=== PATIENT | male | born 1990 | race African-American/Black ===

== ENCOUNTER 2017-01-20 02:39 | Emergency (ER) | payer SELFPAY ==
[~2017-01-20] VITALS: Ht 193 cm; Wt 116.3 kg
[~2017-01-20 02:39] MED LIST: GLUCOMETER XX; GLUCOMTESTSTRIPS XX; LEVEMIR SQ; LISI2.5T3 PO; Z.0.INSULINSYR XX; Z.0.LANCETS XX
[2017-01-20 02:40] VITALS: BP 170/106; PULSE 83; RESP 18; TEMP 97.9; O2SAT 99
[2017-01-20] MEDS ORDERED: LEVEMIR SQ (02:52)
[2017-01-20] MEDS ORDERED: IBUP800T23 PO (02:58)
[2017-01-20] MEDS ORDERED: PERI0.126 SWISH-SPIT (02:58)
[2017-01-20] MEDS ORDERED: ULTR50TA5 PO (02:58)
--- NOTE | 2017-01-20 02:59 | PD ---
HPI Chief Complaint: Oral / Dental Pain or Problem Time Seen by Provider: 02:55 Travel History International Travel<30 days: No Contact w/Intl Traveler<30days: No Traveled to known affect area: No History of Present Illness HPI 26-year-old male presents to the emergency department for evaluation of tooth pain. Patient broke his left mandibular second bicuspid months ago. He states that he has been tolerating some mild pain here and there but over the last 24 hours the pain has become intense. He states that he found a bottle of good oxycodone in the counter and drink some of it. It did not help. He also took some BC powder. Patient denies fever or chills. No new injury. No difficulty eating. No other symptoms to report. PFSH Past Medical History Blood Disorders: No Cancer: No Cardiovascular Problems: No Diabetes: Yes Patient Takes Glucophage: No Endocrine: Yes Genitourinary: No Immune Disorder: No Musculoskeletal: No Neurologic: No Psychiatric: No Reproductive: No Respiratory: No Immunizations Current: Yes Past Surgical History Surgical History: No Previous Surgery Social History Alcohol Use: Yes Tobacco Use: No Substance Use: No Allergies-Medications (Allergen,Severity, Reaction): Coded Allergies: Penicillin (Verified Allergy, Unknown, 01/20/17) *MDRO Multi-Drug Resistant Organism (Verified Adverse Reaction, Unknown, ) 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 Review of Systems Except as stated in HPI: all other systems reviewed are Neg Physical Exam Narrative GENERAL: Well-nourished, well-developed patient in no acute distress SKIN: Focused skin assessment warm/dry. HEAD: Normocephalic. No erythema or edema EYES: No scleral icterus. No injection or drainage. DENTAL: No loose teeth. The left mandibular second bicuspid is broken in half. There is mild gingival erythema. No appreciable abscess. . No malocclusion. NECK: Supple, trachea midline. No JVD or lymphadenopathy. CARDIOVASCULAR: Regular rate and rhythm without murmurs, gallops, or rubs. RESPIRATORY: Breath sounds equal bilaterally. No accessory muscle use. Data Data Last Documented VS Vital Signs Date Time Temp Pulse Resp B/P Pulse Ox O2 Delivery O2 Flow Rate FiO2 01/20/17 02:40 97.9 83 18 170/106 99 Room Air Orders Ketorolac Inj (Toradol Inj) (01/20/17 03:00) [facility] Medical Decision Making Medical Screen Exam Complete: Yes Emergency Medical Condition: Yes Medical Record Reviewed: Yes Differential Diagnosis Dental trauma versus dental caries versus dentalgia versus pulpitis versus gingivitis versus oral abscess Narrative Course 36-year-old male presents to the emergency department for evaluation of tooth pain. Patient does have a broken tooth. He has mild associated didn't foot erythema. Patient has already consumed oxycodone. I'll provide him with one injection of Toradol for additional pain control. I have explained to him he' ll likely a pain until the tooth gets 6. He is provided oral antibiotic, Peridex oral rinse, and pain control. I have them and taking other peoples prescriptions. He verbalizes understanding. He agrees to return immediately with any acute worsening of symptoms. Diagnosis Primary Impression: Dentalgia Additional Impressions: Chipped tooth Qualified Code: S02.5XXB - Open fracture of tooth, initial encounter Gingivitis Referrals: Dentist Primary Care Physician Patient Instructions: Dental Caries (ED), General Instructions Additional Instructions: It is important that you seek dental evaluation Follow-up with primary care provider Do not mix pain medication Return to the emergency department with any acute worsening of symptoms Med/Other Pt SpecificInfo: Prescription(s) given Scripts Clindamycin 150 Mg [id number] Mg PO Q6H 10 Days Ref 0 Prov:Karo Sorto 01/20/17 Chlorhexidine Gluconate (Mouth) Liq (Peridex Liq)0.12% Soln15 Ml SWISH-SPIT BID 14 Days Ref 0 Prov:Karo Sorto 01/20/17 Ibuprofen 800 Mg Hgd149 Mg PO Q8H PRN (Pain/Inflammation) #30 TAB Ref 0 Prov:Karo Sorto 01/20/17 Tramadol (Ultram)50 Mg Tab50 Mg PO Q6H PRN (PAIN) #20 TAB Ref 0 Prov:Karo Sorto 01/20/17 Disposition: 01 DISCHARGE HOME Condition: Stable Karo Sorto Jan 20, 2017 02:58
[2017-01-20] MEDS ORDERED: KETOROLAC TROMETHAMINE 60 MG/2 ML (IM) VIAL IM ONE (03:00)
[2017-01-20] MEDS ORDERED: CLIN1CAP5 PO (03:01)
== END 2017-01-20 03:21 | disposition home or self-care (01) ==
LOC: NEPD 02:39
DX: K08.89 Other specified disorders of teeth and supporting structures (principal); S02.5XXB Fracture of tooth (traumatic), initial encounter for open fracture; K05.10 Chronic gingivitis, plaque induced; E11.9 Type 2 diabetes mellitus without complications; Z79.4 Long term (current) use of insulin; X58.XXXA Exposure to other specified factors, initial encounter
CPT/HCPCS: 96372; 99284; J1885